=== PATIENT | male | born 1985 | race Caucasian/White ===

== ENCOUNTER 2019-04-19 08:15 | Emergency (ER) | payer OTHER, MEDICAID ==
[~2019-04-19] VITALS: Ht 180.3 cm; Wt 81.7 kg
[~2019-04-19 08:15] MED LIST: BENTYL PO; CIPROFLOXACIN500 M1 PO; DOXYCYCLINE 10100 MG PO; FLAGYL500 MG PO; FLEXERIL PO; NORCO 5-325 TA1 EACH PO; PERCOCET 5-3251 EACH PO; VICODIN ES TAB1 EACH PO
[2019-04-19] MEDS ORDERED: TRAMADOL 50 MG50 MG PO (08:39)
[2019-04-19 09:10] VITALS: BP 146/79
== END 2019-04-19 09:11 | disposition home or self-care (01) ==
LOC: M.ERS 08:15
DX: L23.7 Allergic contact dermatitis due to plants, except food (principal)

== ENCOUNTER 2020-01-07 17:32 | Emergency (ER) | payer OTHER | END 2020-01-07 18:10 | disposition home or self-care (01) | LOC: M.ERS 17:32 | DX: L25.9 Unspecified contact dermatitis, unspecified cause (principal) ==

== ENCOUNTER 2021-02-14 19:32 | Emergency (ER) | payer OTHER ==
[~2021-02-14] VITALS: Ht 180.3 cm; Wt 83.9 kg
[~2021-02-14 19:32] MED LIST changes: +HYDROCORTISONE3011 TOP; +MEDROLDOSEPACK PO; +TRAMADOL 50 MG50 MG PO; +XYZAL5 MG PO
[2021-02-14 19:36] VITALS: BP 141/91
== END 2021-02-14 20:35 | disposition left against medical advice (07) ==
LOC: M.ERS 19:32
DX: R10.9 Unspecified abdominal pain (principal); Z53.21 Procedure and treatment not carried out due to patient leaving prior to being seen by health care provider